=== PATIENT | female | born 1995 | race Caucasian/White ===

== ENCOUNTER → 2019-01-13 | Outpatient (REF) | payer OTHER | LOC: M LAB REF 16:21 | PROVIDERS: ATTEND Physician Assistant | DX: R30.0 Dysuria (principal) ==

== ENCOUNTER → 2019-01-28 | Outpatient (CLI) | payer OTHER ==
[2019-01-28 17:20] LABS: BASO % 0.3 % (0.0-1.0); EOS # 0.2 10^3/uL (0.0-0.50); EOS % 2.4 % (0.0-3.0); HEMATOCRIT 40.2 % (36.0-47.0); HEMOGLOBIN 13.5 g/dl (12.0-15.5); LYMPH # 2.5 10^3/uL (1.5-6.5); LYMPH % 38.6 % (24.0-44.0); MEAN CORPUSCULAR HGB CONC 33.6 g/dl (32.0-36.5); MEAN CORPUSCULAR VOLUME 92.2 fl (80.0-96.0); MONO # 0.6 10^3/uL (0.0-0.8); MONO % 9.8 % (0.0-5.0); NEUTROPHILS # 3.2 10^3/uL (1.8-7.7); NEUTROPHILS % 48.7 % (36.0-66.0); PLATELET COUNT, AUTOMATED 321 10^3/uL (150-450); RED BLOOD COUNT 4.36 10^6/uL (4.00-5.40); WHITE BLOOD COUNT 6.6 10^3/uL (4.0-10.0)
[2019-01-28 18:14] LABS: ALBUMIN 4.3 GM/DL (3.2-5.2); ALT/SGPT 25 U/L (12-78); BLOOD UREA NITROGEN 12 MG/DL (7-18); CALCIUM LEVEL 9.6 MG/DL (8.5-10.1); CARBON DIOXIDE LEVEL 29 MEQ/L (21-32); CHLORIDE LEVEL 106 MEQ/L (98-107); CREATININE FOR GFR 0.72 MG/DL (0.55-1.30); GLOMERULAR FILTRATION RATE > 60.0 (>60); GLUCOSE, FASTING 84 MG/DL (70-100); POTASSIUM SERUM 4.2 MEQ/L (3.5-5.1); SODIUM LEVEL 141 MEQ/L (136-145); THYROID STIMULATING HORMONE 0.682 uIU/ML (0.358-3.740); TOTAL PROTEIN 7.1 GM/DL (6.4-8.2)
[2019-01-29 10:14] LABS: THYROID PEROXIDASE ANTIBODY 42.1 U/ML (<60.0)
== END ==
LOC: M WUC 14:26
PROVIDERS: ATTEND Physician Assistant
DX: Z13.29 Encounter for screening for other suspected endocrine disorder (principal)

== ENCOUNTER → 2019-02-20 | Outpatient (CLI) | payer OTHER ==
[2019-02-20 20:53] LABS: BASO % 0.4 % (0.0-1.0); EOS # 0.1 10^3/uL (0.0-0.50); EOS % 1.5 % (0.0-3.0); HEMATOCRIT 39.3 % (36.0-47.0); HEMOGLOBIN 13.2 g/dl (12.0-15.5); LYMPH # 2.1 10^3/uL (1.5-6.5); MEAN CORPUSCULAR HEMOGLOBIN 30.4 pg (27.0-33.0); MEAN CORPUSCULAR HGB CONC 33.6 g/dl (32.0-36.5); MEAN CORPUSCULAR VOLUME 90.6 fl (80.0-96.0); MONO # 0.7 10^3/uL (0.0-0.8); MONO % 12.3 % (0.0-5.0); NEUTROPHILS # 2.6 10^3/uL (1.8-7.7); NEUTROPHILS % 47.6 % (36.0-66.0); PLATELET COUNT, AUTOMATED 337 10^3/uL (150-450); RED BLOOD COUNT 4.34 10^6/uL (4.00-5.40); WHITE BLOOD COUNT 5.5 10^3/uL (4.0-10.0)
[2019-02-20 21:03] LABS: FREE T4 1.15 NG/DL (0.76-1.46); THYROID STIMULATING HORMONE 0.435 uIU/ML (0.358-3.740)
[2019-02-20 21:05] LABS: PROLACTIN 5.7 NG/ML
[2019-02-21 09:38] LABS: HEPATITIS B SURFACE ANTIGEN NEGATIVE (NEGATIVE)
[2019-02-21 10:06] LABS: HEPATITIS C VIRUS ABY INDEX < 0.0 INDEX (<0.8); HIV 1&2 SCREEN CENTAUR NEGATIVE (NEGATIVE)
== END ==
LOC: M WUC 16:11
PROVIDERS: ATTEND Nurse Practitioner Women's Health
DX: N92.0 Excessive and frequent menstruation with regular cycle (principal); Z11.3 Encounter for screening for infections with a predominantly sexual mode of transmission

== ENCOUNTER → 2019-06-04 | Outpatient (CLI) | payer OTHER ==
[2019-06-04 13:39] LABS: BASO % 0.4 % (0.0-1.0); EOS # 0.3 10^3/uL (0.0-0.50); EOS % 2.6 % (0.0-3.0); HEMATOCRIT 39.4 % (36.0-47.0); HEMOGLOBIN 13.6 g/dl (12.0-15.5); LYMPH # 2.2 10^3/uL (1.5-6.5); LYMPH % 20.3 % (24.0-44.0); MEAN CORPUSCULAR HGB CONC 34.5 g/dl (32.0-36.5); MEAN CORPUSCULAR VOLUME 89.7 fl (80.0-96.0); MONO # 0.8 10^3/uL (0.0-0.8); MONO % 7.5 % (0.0-5.0); NEUTROPHILS # 7.3 10^3/uL (1.8-7.7); NEUTROPHILS % 68.7 % (36.0-66.0); PLATELET COUNT, AUTOMATED 296 10^3/uL (150-450); RED BLOOD COUNT 4.39 10^6/uL (4.00-5.40); WHITE BLOOD COUNT 10.6 10^3/uL (4.0-10.0)
[2019-06-04 14:33] LABS: HIV 1&2 SCREEN CENTAUR NEGATIVE (NEGATIVE); RUBELLA IgG QUALITATIVE IMMUNE (IMMUNE)
[2019-06-04 15:53] LABS: CHLAMYDIA DNA AMPLIFICATION NEGATIVE (NEGATIVE); GC DNA AMPLIFICATION NEGATIVE (NEGATIVE)
== END ==
LOC: M SMT 10:46
PROVIDERS: ATTEND Advanced Practice Midwife
DX: Z34.01 Encounter for supervision of normal first pregnancy, first trimester (principal); Z3A.10 10 weeks gestation of pregnancy

== ENCOUNTER → 2019-07-02 | Outpatient (REF) | payer OTHER | LOC: M LAB REF 18:46 | PROVIDERS: ATTEND Advanced Practice Midwife | DX: Z34.82 Encounter for supervision of other normal pregnancy, second trimester (principal); Z3A.00 Weeks of gestation of pregnancy not specified ==

== ENCOUNTER → 2019-07-02 | Outpatient (CLI) | payer OTHER | LOC: M LAB 13:29 | PROVIDERS: ATTEND Specialist | DX: Z34.82 Encounter for supervision of other normal pregnancy, second trimester (principal); Z3A.00 Weeks of gestation of pregnancy not specified ==

== ENCOUNTER → 2019-09-30 | Outpatient (CLI) | payer OTHER ==
[2019-09-30 15:28] LABS: HEMATOCRIT 34.1 % (36.0-47.0); HEMOGLOBIN 11.7 g/dl (12.0-15.5); MEAN CORPUSCULAR HEMOGLOBIN 31.6 pg (27.0-33.0); MEAN CORPUSCULAR HGB CONC 34.3 g/dl (32.0-36.5); MEAN CORPUSCULAR VOLUME 92.2 fl (80.0-96.0); PLATELET COUNT, AUTOMATED 260 10^3/uL (150-450); WHITE BLOOD COUNT 9.1 10^3/uL (4.0-10.0)
== END ==
LOC: M LAB 13:38
PROVIDERS: ATTEND Nurse Practitioner Women's Health
DX: Z34.02 Encounter for supervision of normal first pregnancy, second trimester (principal)

== ENCOUNTER → 2019-10-14 | Outpatient (CLI) | payer OTHER | LOC: M LAB 08:05 | PROVIDERS: ATTEND Obstetrics & Gynecology | DX: Z36.89 Encounter for other specified antenatal screening (principal) ==

== ENCOUNTER → 2019-12-01 | Outpatient (REF) | payer OTHER | LOC: M WHC 12:59 | PROVIDERS: ATTEND Advanced Practice Midwife | DX: Z34.03 Encounter for supervision of normal first pregnancy, third trimester (principal) ==

== ENCOUNTER 2020-01-02 04:43 | Inpatient (IN) | payer OTHER ==
[~2020-01-02] VITALS: Ht 162.6 cm; Wt 85.5 kg
[2020-01-02] VITALS (83 sets, daily range): BP systolic 78–134; BP diastolic 42–86
[2020-01-02] MEDS ORDERED: BUTORPHANOL 2 MG/ML INJ (J0595) IV ONE (05:45)
[2020-01-02] MEDS ORDERED: PROMETHAZINE INJ 25 MG/ML VIAL (J2550) IV ONE (05:45)
[2020-01-02 06:34] LABS: HEMATOCRIT 39.3 % (36.0-47.0); HEMOGLOBIN 13.7 g/dl (12.0-15.5); MEAN CORPUSCULAR HEMOGLOBIN 31.9 pg (27.0-33.0); MEAN CORPUSCULAR HGB CONC 34.9 g/dl (32.0-36.5); MEAN CORPUSCULAR VOLUME 91.4 fl (80.0-96.0); PLATELET COUNT, AUTOMATED 301 10^3/uL (150-450); WHITE BLOOD COUNT 17.5 10^3/uL (4.0-10.0)
[2020-01-02] MEDS ORDERED: FENTANYL 2MCG/ML ROPIVACAINE 0.2% IN 0.9% NACL 100ML IVBAG As Ordered ONE ×2 (09:25→21:52)
[2020-01-02] MEDS ORDERED: LACTATED RINGER'S 1000 ML IV ONE (09:30)
[2020-01-02] MEDS: LR 1,000 ML IV SCH ×3 (10:13→18:33)
[2020-01-02] MEDS: FENTANYL/ROPIVACAINE/NACL BAG 100 ML EPIDURAL SCH ×2 (10:28→21:56)
[2020-01-02] MEDS ORDERED: ePHEDrine SULFATE 25 MG/5 ML(5MG/ML) SYRINGE As Ordered ONE (10:50)
[2020-01-02] MEDS: ePHEDrine SULFATE 25 MG/5 ML(5MG/ML) SYRINGE IV PRN ×7 (10:58→19:58)
[2020-01-02] MEDS ORDERED: EPIDURAL COMMENT XX SCH (11:00)
[2020-01-02] MEDS ORDERED: diphenhydrAMINE INJ 50MG/ML VIAL (J1200) IV PRN (11:00)
[2020-01-02] MEDS ORDERED: ONDANSETRON 4MG/2ML VIAL (J2405) IV PRN (11:00)
[2020-01-02] MEDS ORDERED: EPIDURAL/PCA KEYS XX PRN (11:00)
[2020-01-02] MEDS ORDERED: LACTATED RINGER'S 1000 ML IV PRN (11:00)
[2020-01-02] MEDS ORDERED: REFRIGERATOR IV KEYS XX PRN (11:00)
[2020-01-02] MEDS ORDERED: NALOXONE INJ 0.4 MG/1 ML VIAL (J2310) IV PRN (11:00)
[2020-01-02] MEDS ORDERED: ePHEDrine INJ 50 MG/ML VIAL IV PRN (11:30)
[2020-01-02] MEDS ORDERED: OXYTOCIN DRIP 30 UNITS in IV 1 EA IV SCH (11:45)
[2020-01-03] VITALS (14 sets, daily range): BP systolic 104–130; BP diastolic 55–77
[2020-01-03] MEDS ORDERED: OXYTOCIN DRIP 30 UNITS in IV 1 EA IV SCH (02:17)
[2020-01-03] MEDS ORDERED: ANUSOL HC CREAM 30GM TOP PRN (02:30)
[2020-01-03] MEDS ORDERED: ACETAMINOPHEN TAB 650MG DOSE (2X325MG) PO PRN (02:30)
[2020-01-03] MEDS ORDERED: RHOGAM 300 MCG (1500 IU) INJ (J2790) IM SCH (02:30)
[2020-01-03] MEDS ORDERED: IBUPROFEN 800 MG TAB PO PRN (02:30)
[2020-01-03] MEDS ORDERED: MEASLES,MUMPS,RUBELLA VACCINE INJ (MMR-II) (90707) SC SCH (02:30)
[2020-01-03] MEDS ORDERED: DIBUCAINE 1% OINTMENT 30GM TOP PRN (02:30)
[2020-01-03] MEDS ORDERED: METHYLERGONOVINE MALEATE 0.2 MG TAB PO PRN (02:30)
[2020-01-03] MEDS ORDERED: IBUPROFEN 600 MG TAB PO PRN (02:30)
[2020-01-03] MEDS ORDERED: DOCUSATE SODIUM 100 MG CAP PO PRN (02:30)
[2020-01-03] MEDS ORDERED: SLF 3 ML SYR IV PRN (04:15)
[2020-01-03] MEDS: SLF 3 ML SYR IV SCH ×3 (05:43→20:08)
--- NOTE | 2020-01-03 06:13 | DN ---
DATE OF DELIVERY: 01/03/2020 DELIVERY NOTE: Jeremy is a 24-year-old, 1, para 1-0-0-1, who was admitted to labor and delivery in active labor. She did utilize an epidural for her labor coping. She reached complete dilation at 2325 hours. She pushed to a normal spontaneous vaginal delivery of a live male infant in right occiput anterior (HALEY) position with restitution to occiput transverse (ROT) position at 0128 hours. The head rotated from ROP to HALEY on the perineum as occurred. The shoulders delivered spontaneously and the corpus immediately followed. There was no shoulder dystocia. The was placed on maternal abdomen. Mouth and nares were bulb suctioned. The cord was clamped times two and cut by the father of the baby under my direction. Cord blood was obtained spontaneous expulsion of an intact placenta with three-vessel cord by Schultze mechanism at 0134 hours. Uterine hemostasis achieved with IV Pitocin rapid infusion and uterine fundal massage. Estimated blood loss 400 mL. Perineum and vagina inspected noted have a second-degree vaginal laceration as well as bilateral labial lacerations. They were repaired with #3-0 Rapide in the usual fashion. Mora male, 7 and 9, weight 9 pounds 15 ounces (4510 grams). Mom is going to attempt to breastfeed her son and the family have named him Aakash. Of note, the 's left arm appears to have some weakness. There is movement of fingers and wrist at this time that is purposeful. At the close of delivery, lap counts, needle counts and instrument counts were correct and verified. [facility]
[2020-01-03] MEDS: PRENATAL VITAMINS CHEWABLE TABLET PO SCH (08:39)
[2020-01-03] MEDS: ACETAMINOPHEN 500 MG TAB PO PRN (08:39)
[2020-01-04] MEDS: ACETAMINOPHEN 500 MG TAB PO PRN ×2 (00:19→11:32)
[2020-01-04] MEDS: SLF 3 ML SYR IV SCH (05:17)
[2020-01-04 06:00] VITALS: BP 102/64
[2020-01-04] MEDS: PRENATAL VITAMINS CHEWABLE TABLET PO SCH (10:30)
== END 2020-01-04 13:45 | disposition home or self-care (01) | DRG 807 ==
LOC: M LDO 04:43 → M LDI 05:52 → M OBS 01-03 03:31
PROVIDERS: ADMIT Obstetrics & Gynecology; ATTEND Obstetrics & Gynecology
PROC: 10E0XZZ Delivery of Products of Conception, External Approach (ICD-10-PCS; principal; 2020-01-03)
PROC: 0KQM0ZZ Repair Perineum Muscle, Open Approach (ICD-10-PCS; 2020-01-03)
PROC: 0HQ9XZZ Repair Perineum Skin, External Approach (ICD-10-PCS; 2020-01-03)
DX: O70.1 Second degree perineal laceration during delivery (principal); Z37.0 Single live birth; Z3A.39 39 weeks gestation of pregnancy; O70.0 First degree perineal laceration during delivery

== ENCOUNTER → 2020-05-24 | Outpatient (REF) | payer OTHER | LOC: M LAB REF 08:00 | PROVIDERS: ATTEND Advanced Practice Midwife | DX: R87.610 Atypical squamous cells of undetermined significance on cytologic smear of cervix (ASC-US) (principal) | CPT/HCPCS: G0123; G0463 ==

== ENCOUNTER → 2020-10-13 | Outpatient (REF) | payer OTHER | LOC: M LAB REF 15:52 | PROVIDERS: ATTEND Physician Assistant | DX: R30.0 Dysuria (principal) ==